=== PATIENT | female | born 1995 | race American Indian/Alaskan Native ===

== ENCOUNTER 2016-12-19 04:39 | Emergency (ER) | payer OTHER ==
[2016-12-19 04:42] VITALS: BMI 22.1
[2016-12-19 04:58] VITALS: RESP 18
--- NOTE | 2016-12-19 05:08 | ED PDOC ---
Arrival/HPI <Guilherme Tim - Last Filed: 12/19/16 06:04> - General Historian: Patient <Varsha Kumar - Last Filed: 12/19/16 06:19> - General Chief Complaint: Dizziness/Lightheaded Time Seen by Provider: 12/19/16 04:47 - History of Present Illness Narrative History of Present Illness (Text): 12/19/16 05:05 Patient is a 21 y/o with no significant pmh, h/o multiple ED visits presenting with dizziness, and headache since yesterday. Patient states the symptom started 2 pm yesterday, she took Tylenol with some relief. Patient states she works night at [employer], and while at work, she continued to experience dizziness and headache, someone checked her BP it was 120/90s. Patient admits to feeling anxious, and is under a lot of stress from work. Patient admits to chest palpitations, and nausea. Denies vomiting or diarrhea. Patient denies cp or sob, denies falling or LOC. 12/19/16 05:08 (Varsha Kumar) Past Medical History - Provider Review Nursing Documentation Reviewed: Yes - Travel History Have you recently traveled outside [place] w/in the past 3 mons?: No - Past History Past History: No Previous - Infectious Disease Hx of Infectious Diseases: None - Tetanus Immunization Tetanus Immunization: Unknown - Reproductive Menopause: No - Past Medical History Past Medical History: No Previous - Cardiac Hx Cardiac Disorders: No - Pulmonary Hx Respiratory Disorders: No Hx Asthma: No - Psychiatric Hx Substance Use: No - Past Surgical History Past Surgical History: No Previous - Anesthesia Hx Anesthesia: No Hx Anesthesia Reactions: No Hx Malignant Hyperthermia: No <Varsha Kumar - Last Filed: 12/19/16 06:19> Family/Social History - Physician Review Nursing Documentation Reviewed: Yes Family/Social History: No Known Family HX Smoking Status: Never Smoked Hx Alcohol Use: No Hx Substance Use: No <Varsha Kumar - Last Filed: 12/19/16 06:19> Allergies/Home Meds <Guilherme Tim - Last Filed: 12/19/16 06:04> <Varsha Kumar - Last Filed: 12/19/16 06:19> Allergies/Adverse Reactions: Allergies No Known Allergies Allergy (Verified 06/28/16 11:06) Home Medications: Home Meds Medication Instructions Recorded Confirmed No Known Home Med 07/06/16 07/06/16 Review of Systems - Review of Systems Constitutional: Normal Eyes: Normal ENT: Normal Respiratory: Normal Cardiovascular: Palpitations. absent: Chest Pain, Edema, Orthopnea, Syncope Gastrointestinal: Nausea. absent: Stool Changes, Constipation, Diarrhea, Vomiting Genitourinary Female: Normal Musculoskeletal: Normal Skin: Normal Neurological: Headache, Dizziness. absent: Focal Weakness, Speech Changes, Seizure Endocrine: Normal Hemo/Lymphatic: Normal Psychiatric: Normal <Varsha Kumar - Last Filed: 12/19/16 06:19> Physical Exam Vital Signs Reviewed: Yes Temperature: Afebrile Blood Pressure: Normal Pulse: Regular Respiratory Rate: Normal Appearance: Positive for: Well-Appearing, Comfortable. No: Non-Toxic Pain Distress: None Mental Status: Positive for: Alert and Oriented X 3 - Systems Exam Head: Present: Atraumatic, Normocephalic Pupils: Present: PERRL Extroacular Muscles: Present: EOMI Conjunctiva: Present: Normal Mouth: Present: Dry Neck: Present: Normal Range of Motion Respiratory/Chest: Present: Clear to Auscultation, Good Air Exchange. No: Respiratory Distress, Accessory Muscle Use, Wheezes, Rales, Rhonchi, Tachypneic Cardiovascular: Present: Regular Rate and Rhythm, Normal S1, S2. No: Murmurs Abdomen: Present: Normal Bowel Sounds. No: Tenderness, Distention Back: Present: Normal Inspection Upper Extremity: Present: Normal Inspection. No: Cyanosis, Edema Lower Extremity: Present: Normal Inspection. No: Edema Neurological: Present: GCS=15, Speech Normal Skin: Present: Warm, Dry, Normal Color. No: Rashes Psychiatric: Present: Alert, Oriented x 3, Anxious <Varsha Kumar - Last Filed: 12/19/16 06:19> Vital Signs Pulse Resp BP Pulse Ox 12/19/16 04:42 79 18 131/65 97 Medical Decision Making <Guilherme Tim - Last Filed: 12/19/16 06:04> - EKG Interpretation Interpreted by ED Physician: Yes Type: 12 lead EKG <Varsha Kumar - Last Filed: 12/19/16 06:19> ED Course and Treatment: Impression: Pt seen and evaluated with medical liaison. Pt, with no significant past medical history, presented for dizziness and headache since 14:00 yesterday. Pt notes she is stressed due to her workload. Pt also reports palpitations. Aware and agree with HPI, clinical findings, plan, and management. Plan: -- EKG -- CT Head w/o contrast -- Tylenol - Reassess and disposition (Guilherme Tim) - RAD Interpretation Radiology Orders: 12/19/16 05:02 HEAD W/O CONTRAST [CT] Stat - EKG Interpretation EKG Interpretation (Text): 12/19/16 06:07 NSR@ 67 BPM. with sinus arrhythmias. No acute ST/T wave changes. 12/19/16 06:08 (Varsha Kumar) - Medication Orders Current Medication Orders: Discontinued Medications Acetaminophen (Tylenol 325mg Tab) 650 mg PO STAT STA Stop: 12/19/16 05:09 Last Admin: 12/19/16 05:19 Dose: 650 mg - PA / SOFTWARE DEVELOPMENT INTERN / Resident Statement JAIR has reviewed & agrees with the documentation as recorded. JAIR has examined the patient and agrees with the treatment plan. <Guilherme Tim - Last Filed: 12/19/16 06:04> Disposition/Present on Arrival <Guilherme Tim - Last Filed: 12/19/16 06:04> - Present on Arrival Any Indicators Present on Arrival: No History of DVT/PE: No History of Uncontrolled Diabetes: No Urinary Catheter: No History of Decub. Ulcer: No History Surgical Site Infection Following: None - Disposition Have Diagnosis and Disposition been Completed?: Yes Disposition Time: 06:09 Patient Plan: Discharge <Varsha Kumar - Last Filed: 12/19/16 06:19> - Disposition Diagnosis: Headache, Dizziness, Anxiety Disposition: HOME/ ROUTINE Condition: STABLE Discharge Instructions (ExitCare): Anxiety (ED) Additional Instructions: Please follow up with your primary care doctor. Go to the nearest emergency room if you experienced the worst headache of your life, chest pain, fever or chills. Referrals: [facility] [place] - Follow up with primary Nora Blanchard MD [Medical Doctor] - Follow up with primary
[2016-12-19 06:21] VITALS: BP 126/62; PULSE 75; TEMP 98.4; O2SAT 99
--- NOTE | 2016-12-19 09:21 | CT ---
PROCEDURE: CT HEAD WITHOUT CONTRAST. HISTORY: r/o cva COMPARISON: None available. TECHNIQUE: Axial computed tomography images were obtained through the head/brain without intravenous contrast. Radiation dose: Total exam DLP = 629 mGy-cm. This CT exam was performed using one or more of the following dose reduction techniques: Automated exposure control, adjustment of the mA and/or kV according to patient size, and/or use of iterative reconstruction technique. FINDINGS: HEMORRHAGE: No intracranial hemorrhage. BRAIN: No mass effect or edema. No atrophy or chronic microvascular ischemic changes. VENTRICLES: Unremarkable. No hydrocephalus. CALVARIUM: Unremarkable. PARANASAL SINUSES: Unremarkable as visualized. No significant inflammatory changes. MASTOID AIR CELLS: Unremarkable as visualized. No inflammatory changes. OTHER FINDINGS: The report concurs with the preliminary [facility] report IMPRESSION: Normal CT of the Head.
--- NOTE | 2016-12-19 15:31 | CARD ---
APPROVED REPORT EKG Measurement Heart [id number] <Conclusion> Normal sinus rhythm with sinus arrhythmia Normal ECG
== END 2016-12-19 06:20 | disposition home or self-care (01) ==
LOC: ED 04:39
DX: R51 Headache (principal); R42 Dizziness and giddiness; F41.9 Anxiety disorder, unspecified

== ENCOUNTER 2017-01-07 14:25 | Emergency (ER) | payer SELFPAY ==
[2017-01-07 14:49] VITALS: BMI 23.8
[2017-01-07 14:53] VITALS: TEMP 98.8; O2SAT 96
[2017-01-07] MEDS ORDERED: Sodium Chloride 0.9% 1,000 ML IV STA (15:42)
[2017-01-07 16:02] VITALS: RESP 18
[2017-01-07 16:11] LABS: BASO # 0.01 K/mm3 (0.0-2.0); BASO % 0.1 % (0.0-3.0); EOS % 0.1 % (1.5-5.0); GRAN # 13.69 (1.4-6.5); GRAN % 93.5 % (50.0-68.0); HEMOGLOBIN 14.3 gm/dL (12.0-16.0); LYMPH # 0.4 (1.2-3.4); LYMPH % 2.7 % (22.0-35.0); MEAN CELL VOLUME 80.8 fL (80.0-105.0); MEAN CORPUSCULAR HEMOGLOBIN 27.4 pg (25.0-35.0); MEAN CORPUSCULAR HGB CONC 33.9 g/dl (31.0-37.0); MEAN PLATELET VOLUME 10.7 fl (7.0-11.0); MONO # 0.5 (0.1-0.6); MONO % 3.6 % (1.0-6.0); PLATELET COUNT 235 10^3/uL (120.0-450.0); RBC 5.22 10^6/uL (3.5-6.1); RED CELL DISTRIBUTION WIDTH 13.7 % (11.5-14.5); WHITE BLOOD COUNT 14.6 10^3/ul (4.5-11.0)
[2017-01-07 16:14] LABS: ALB/GLOB RATIO 1.1 (1.1-1.8); ALBUMIN 4.6 g/dL (3.0-4.8); ALT/SGPT 27 U/L (7-56); AST/SGOT 31 U/L (15-39); BLOOD UREA NITROGEN 21 mg/dL (7-21); CALCIUM 9.8 mg/dL (8.4-10.5); GFR AFRICAN-AMERICAN > 60; GFR NON-AFRICAN AMERICAN > 60; LIPASE 99 U/L (23-300)
[2017-01-07 16:16] LABS: URINE BILIRUBIN NEGATIVE (NEGATIVE); URINE BLOOD NEGATIVE (NEGATIVE); URINE GLUCOSE (UA) NEGATIVE (NEGATIVE); URINE LEUKOCYTE ESTERASE SMALL Leu/uL (NEGATIVE); URINE NITRATE NEGATIVE (NEGATIVE); URINE PROTEIN NEGATIVE mg/dL (<30 mg/dL); URINE UROBILINOGEN 0.2 E.U./dL (<1 E.U./dL)
[2017-01-07 16:18] LABS: URINE APPEARANCE SL CLOUDY (CLEAR); URINE COLOR YELLOW (YELLOW)
[2017-01-07 16:38] LABS: URINE BACTERIA MANY (NEG); URINE RBC NEGATIVE /hpf (0-2); URINE WBC 0 - 2 /hpf (0-6)
[2017-01-07 17:28] VITALS: BP 131/79; PULSE 89
--- NOTE | 2017-01-07 17:30 | ED PDOC ---
Arrival/HPI - General Historian: Patient - General Chief Complaint: GI Problem Time Seen by Provider: 01/07/17 14:32 - History of Present Illness Narrative History of Present Illness (Text): 01/07/17 18:32 21-year-old female presents to the emergency room complaining of multiple episodes of vomiting associated with lower abdominal pain and diarrhea since this morning. patient states that since this morning at 7:30 she has been feeling nauseous and has had multiple episodes of nonbloody, nonbilious vomiting associated with mild crampy intermittent lower abdominal pain, as well as having 2 episodes of nonbloody diarrhea today. Otherwise: (-) recent travel, (-) sick contacts, (-) recent antibiotic use, (-) take out food, (-) fever, (-) melena, (-) hematochezia, (-) urinary symptoms. Has no history of prior abdominal surgery. PMD [place] (Eveline Palma PA-C) Past Medical History - Provider Review Nursing Documentation Reviewed: Yes - Past History Past History: No Previous - Infectious Disease Hx of Infectious Diseases: None - Tetanus Immunization Tetanus Immunization: Unknown - Past Medical History Past Medical History: No Previous - Cardiac Hx Cardiac Disorders: No - Pulmonary Hx Respiratory Disorders: No Hx Asthma: No - Psychiatric Hx Substance Use: No - Past Surgical History Past Surgical History: No Previous - Anesthesia Hx Anesthesia: No Hx Anesthesia Reactions: No Hx Malignant Hyperthermia: No Family/Social History - Physician Review Nursing Documentation Reviewed: Yes Family/Social History: No Known Family HX Smoking Status: Never Smoked Hx Alcohol Use: No Hx Substance Use: No Allergies/Home Meds Allergies/Adverse Reactions: Allergies No Known Allergies Allergy (Verified 01/07/17 14:49) Review of Systems - Review of Systems Constitutional: Normal. absent: Fatigue, Weight Change, Fevers Respiratory: Normal. absent: SOB, Cough, Sputum Cardiovascular: Normal. absent: Chest Pain, Palpitations, Edema Gastrointestinal: Normal, Abdominal Pain, Diarrhea, Vomiting. absent: Stool Changes, Appetite Changes Musculoskeletal: Normal. absent: Arthralgias, Back Pain, Neck Pain Skin: Normal. absent: Rash, Pruritis, Skin Lesions Physical Exam - Physical Exam Narrative Physical Exam (Text): 01/07/17 18:31 GENERAL APPEARANCE: Patient is awake, alert, oriented x 3, in no acute distress. SKIN: Warm, dry; (-) cyanosis. EYES: (-) conjunctival pallor, (-) scleral icterus. ENMT: Mucous membranes dry. NECK: (-) tenderness, (-) stiffness, (-) lymphadenopathy. CHEST AND RESPIRATORY: (-) rales, (-) rhonchi, (-) wheezes; breath sounds equal bilaterally. HEART AND CARDIOVASCULAR: (-) irregularity; (-) murmur, (-) gallop. ABDOMEN AND GI: (-) distention. Bowel sounds active; (+) mild diffuse abdominal tenderness, greatest in the LUQ (-) guarding, (-) rebound, (-) palpable masses, (-) CVA tenderness. EXTREMITIES: (-) deformity, (-) edema, (+) distal pulses. NEURO AND PSYCH: Mental status as above; (-) focal findings. (Louie VALENTINE, Eveline Matute) Vital Signs Temp Pulse Resp BP Pulse Ox 01/07/17 17:15 89 18 131/79 96 01/07/17 16:01 98 H 18 133/89 96 01/07/17 14:50 98.8 F 120 H 19 135/93 H 96 Medical Decision Making ED Course and Treatment: 01/07/17 17:37 I was available for consultation during PA evaluation. The chart was reviewed by me, and I agree with disposition. The documented history was done by the physician bag turner. The documented physical exam was done by the physician bag turner. The documented procedures were done by the physician bag turner. (Bubba Staley) 21-year-old female presents to the emergency room complaining of multiple episodes of vomiting associated with lower abdominal pain and diarrhea since this morning. Based on history and exam likely gastroenteritis considered dyspepsia, and colitis. Plan: -- Labs -- IV fluids -- Urinalysis -- Pepcid / Zofran / Toradol -- Reassess and disposition On reevaluation, the patient is sleeping comfortably on the bed in no acute distress, however she is easily arousable. Patient reports improvement of abdominal pain, denies any nausea, had no further episodes of vomiting or diarrhea in the emergency room. On exam, abdomen remains soft with no tenderness , no guarding, no rebound. Lab results reviewed, WBC 14.6, CMP is wnl, uhcg (-), UA +ketones, +UTI. Urine cx sent. Lab results discussed with the patient in great detail. Prescription provided to the patient. Advised to follow up with her PMD in 2 days for reevaluation without fail. Patient advised to return to the emergency room at any time for any worsening symptoms, intractable vomiting or fever. Patient states she fully agrees with and understands discharge instructions. States that she agrees with the plan and disposition. Verbalized and repeated discharge instructions and plan. I have given the patient opportunity to ask any additional questions. (Louie VALENTINE,Eveline Matute) - Lab Interpretations Lab Results: 01/07/17 15:50 01/07/17 15:50 Lab Results 01/07/17 16:07: Urine Color Yellow, Urine Appearance Sl cloudy, Urine pH 6.0, Ur Specific [place] 1.025, Urine Protein Negative, Urine Glucose (UA) Negative, Urine Ketones 40 H, Urine Blood Negative, Urine Nitrate Negative, Urine Bilirubin Negative, Urine Urobilinogen 0.2, Ur Leukocyte Esterase Small H, Urine RBC Negative, Urine WBC 0 - 2, Ur Epithelial Cells 10 - 12, Urine Bacteria Many 01/07/17 15:50: Sodium 138, Potassium 4.1, Chloride 103, Carbon Dioxide 24, Anion Gap 15, BUN 21, Creatinine 0.9, Est GFR ( Amer) > 60, Est GFR (Non- Af Amer) > 60, Random Glucose 88, Calcium 9.8, Total Bilirubin 0.8, AST 31, ALT 27, Alkaline Phosphatase 64, Total Protein 8.7 H, Albumin 4.6, Globulin 4.1, Albumin/Globulin Ratio 1.1, Lipase 99 01/07/17 15:50: WBC 14.6 H D, RBC 5.22, Hgb 14.3, Hct 42.2, MCV 80.8, MCH 27.4, MCHC 33.9, RDW 13.7, Plt Count 235, MPV 10.7, Gran % 93.5 H, Lymph % (Auto) 2.7 L, [place] % (Auto) 3.6, Eos % (Auto) 0.1 L, Baso % (Auto) 0.1, Gran # 13.69 H, Lymph # 0.4 L, [place] # 0.5, Eos # 0.0, Baso # 0.01 - Medication Orders Current Medication Orders: Discontinued Medications Famotidine (Pepcid) 20 mg IVP STAT STA Stop: 01/07/17 15:43 Last Admin: 01/07/17 15:56 Dose: 20 mg Sodium Chloride (Sodium Chloride 0.9%) 1,000 mls @ 1,000 mls/hr IV .Q1H STA Stop: 01/07/17 16:41 Last Admin: 01/07/17 15:56 Dose: 1,000 mls/hr Ketorolac Tromethamine (Toradol) 30 mg IVP STAT STA Stop: 01/07/17 15:43 Last Admin: 01/07/17 15:56 Dose: 30 mg Re-Assess: YULIYA Pain Assessment Document 01/07/17 16:56 GMD (Rec: 01/07/17 17:34 GMD [id number]) Pain Reassessment Is this a pain reassessment? Yes Presence of Pain Presence of Pain No Ondansetron HCl (Zofran Inj) 4 mg IVP STAT STA Stop: 01/07/17 15:43 Last Admin: 01/07/17 15:56 Dose: 4 mg - PA / ARMORING MACHINE OPERATOR / Resident Statement MD/DO has reviewed & agrees with the documentation as recorded. Disposition/Present on Arrival - Present on Arrival Any Indicators Present on Arrival: No History of DVT/PE: No History of Uncontrolled Diabetes: No Urinary Catheter: No History of Decub. Ulcer: No History Surgical Site Infection Following: None - Disposition Have Diagnosis and Disposition been Completed?: Yes Disposition Time: 17:10 Patient Plan: Discharge - Disposition Diagnosis: Gastroenteritis, UTI (urinary tract infection) Disposition: HOME/ ROUTINE Condition: IMPROVED Discharge Instructions (ExitCare): Urinary Tract Infection in Women (ED), Gastroenteritis (ED) Print Language: SLOV[place] Additional Instructions: Thank you for letting us take care of you today. You were treated for gastroenteritis, UTI. The emergency medical care you received today was directed at your acute symptoms. If you were prescribed any medication, please fill it and take as directed. It may take several days for your symptoms to resolve. Return to the Emergency Department if your symptoms worsen, do not improve, or if you have any other problems. Please contact your doctor in 2 days for re-evaluation and follow up. Bring any paperwork you were given at discharge with you along with any medications you are taking to your follow up visit. Our treatment cannot replace ongoing medical care by a primary care provider (PCP) outside of the emergency department. Thank you for allowing the [facility] team to be part of your care today. Prescriptions: Famotidine [Pepcid] 40 mg PO DAILY #20 tablet Nitrofurantoin Macrocrystals [Macrobid] 100 mg PO BID #20 cap Ondansetron ODT [Zofran ODT] 4 mg PO DAILY PRN #20 odt PRN Reason: Nausea/Vomiting Referrals: [facility] Maximilian Reotto, [Primary Care Provider] - Follow up with primary Forms: WORK NOTE
== END 2017-01-07 17:38 | disposition home or self-care (01) ==
LOC: ED 14:25
DX: K52.9 Noninfective gastroenteritis and colitis, unspecified (principal); N39.0 Urinary tract infection, site not specified
CPT/HCPCS: 80053; 81001; 83690; 85025; 87086; 96361; 96374; 96375; 99285; J1885; J2405; J7040

== ENCOUNTER 2017-03-04 20:07 | Emergency (ER) | payer SELFPAY ==
[2017-03-04 20:11] VITALS: BMI 22.1
[2017-03-04 20:18] VITALS: BP 140/67; PULSE 74; RESP 16; TEMP 98.1; O2SAT 97
--- NOTE | 2017-03-04 20:26 | ED PDOC ---
Arrival/HPI <Guilherme Tim - Last Filed: 03/04/17 21:30> - History of Present Illness Time/Duration: Other (2 days) Symptom Onset: Gradual Symptom Course: Worsening Quality: Aching, Tightness Severity Level: Severe Context: Standing <Cesar Hurt - Last Filed: 03/04/17 22:30> - General Chief Complaint: Lower Extremity Problem/Injury Time Seen by Provider: 03/04/17 20:10 - History of Present Illness Narrative History of Present Illness (Text): 03/04/17 20:20 21yo F with no significant PMHx here for evaluation of right lower extremity. Pain started 2 days ago, located in the back of right knee and radiates to the right buttock. Pain described as deep, sharp, aching, 9/10 on pain scale. She states that she has had similar complaints in the past, but none have been this bad. She has not taken anything for the pain at home. She states that walking makes the pain worse. She states that she is on her feet, standing for about 10 hours for work, which she believes that has made her pain worse. Denies any trauma. Denies any back pain. No bowel or urine changes. No Abd pain. No N/V/D. No CP/SOB. No Boils or skin changes. No further complaints. PMHx: Denies PSHx: Denies Social Hx: Denies tob, Denies ETOH, Denies illicit drugs NKDA (Cesar Hurt) Past Medical History - Provider Review Nursing Documentation Reviewed: Yes - Past History Past History: No Previous - Infectious Disease Hx of Infectious Diseases: None - Tetanus Immunization Tetanus Immunization: Unknown - Past Medical History Past Medical History: No Previous - Cardiac Hx Cardiac Disorders: No - Pulmonary Hx Respiratory Disorders: No Hx Asthma: No - Psychiatric Hx Substance Use: No - Past Surgical History Past Surgical History: No Previous - Anesthesia Hx Anesthesia: No Hx Anesthesia Reactions: No Hx Malignant Hyperthermia: No <Cesar Hurt - Last Filed: 03/04/17 22:30> Family/Social History - Physician Review Nursing Documentation Reviewed: Yes Family/Social History: No Known Family HX Smoking Status: Never Smoked Hx Alcohol Use: No Hx Substance Use: No <Cesar Hurt - Last Filed: 03/04/17 22:30> Allergies/Home Meds <Guilherme Tim - Last Filed: 03/04/17 21:30> <Cesar Hurt - Last Filed: 03/04/17 22:30> Allergies/Adverse Reactions: Allergies No Known Allergies Allergy (Verified 01/07/17 14:49) Review of Systems - Physician Review All systems were reviewed & negative as marked: Yes - Review of Systems Constitutional: Normal Eyes: Normal ENT: Normal Respiratory: Normal Cardiovascular: Normal. absent: Chest Pain Gastrointestinal: Normal. absent: Abdominal Pain Genitourinary Female: Normal. absent: Dysuria Musculoskeletal: Other (Right leg pain). absent: Back Pain Skin: Normal Neurological: Normal Endocrine: absent: Diaphoresis Hemo/Lymphatic: absent: Adenopathy Psychiatric: Normal <Cesar Hurt - Last Filed: 03/04/17 22:30> Physical Exam Vital Signs Reviewed: Yes Temperature: Afebrile Blood Pressure: Normal Pulse: Regular Respiratory Rate: Normal Appearance: Positive for: Well-Appearing, Non-Toxic, Comfortable Pain Distress: Moderate Mental Status: Positive for: Alert and Oriented X 3 - Systems Exam Head: Present: Atraumatic, Normocephalic Extroacular Muscles: Present: EOMI Conjunctiva: Present: Normal Mouth: Present: Moist Mucous Membranes Respiratory/Chest: Present: Clear to Auscultation, Good Air Exchange. No: Respiratory Distress Cardiovascular: Present: Regular Rate and Rhythm, Normal S1, S2, Peripheal Pulses Present. No: Murmurs, Tachycardic Abdomen: No: Tenderness, Distention, Peritoneal Signs, Rebound, Guarding Back: Present: Normal Inspection. No: CVA Tenderness, Midline Tenderness, Paraspinal Tenderness, Pain with Leg Raise Upper Extremity: Present: Normal Inspection, Normal ROM, NORMAL PULSES. No: Edema Lower Extremity: Present: Normal Inspection, NORMAL PULSES, Normal ROM, Neurovascularly Intact. No: Edema, CALF TENDERNESS, Cyanosis, Valery's Sign, Tenderness, Swelling, Erythema, Deformity, Temperature Abnormalties Neurological: Present: GCS=15, CN II-XII Intact, Speech Normal, Gait Normal Skin: Present: Warm, Dry, Normal Color. No: Rashes, Abscess Psychiatric: Present: Alert, Oriented x 3 <Cesar Hurt - Last Filed: 03/04/17 22:30> Vital Signs Temp Pulse Resp BP Pulse Ox 03/04/17 20:08 98.1 F 74 16 140/67 97 Medical Decision Making <Guilherme Tim - Last Filed: 03/04/17 21:30> <Cesar Hurt - Last Filed: 03/04/17 22:30> ED Course and Treatment: 03/04/17 21:31 In agreement with resident note, which includes further HPI details. Patient was seen and evaluated with resident, came up with plan and treatment together. (Guilherme Tim) 03/04/17 20:33 21yo F here with right leg pain - Duplex Right Lower Extremity - Urine Preg negative - Toradol 30mg IM - reassess and dispo 03/04/17 22:19 Doppler RLE - Negative DVT Study (Prelim) Discussed findings with patient. All questions and concerns addressed. Prescribed Naproxyn. Patient to follow up with her PMD. Patient understands and agrees with plan. (Cesar Hurt) - RAD Interpretation Radiology Orders: 03/04/17 20:30 DUPLEX LOWER EXTRM VEIN RIGHT [US] Stat - Medication Orders Current Medication Orders: Discontinued Medications Ketorolac Tromethamine (Toradol) 30 mg IM STAT STA Stop: 03/04/17 20:50 Last Admin: 03/04/17 21:04 Dose: 30 mg - Scribe Statement The provider has reviewed the documentation as recorded by the Scribe <Guilherme Tim - Last Filed: 03/04/17 21:30> - PA / SECONDARY SCHO[employer] SPECIAL ED TEACHER / Resident Statement / has reviewed & agrees with the documentation as recorded. MD/ has examined the patient and agrees with the treatment plan. <Cesar Hurt - Last Filed: 03/04/17 22:30> - Scribe Statement 03/04/2017 Lindsay Boone Provider Scribe Attestation: All medical record entries made by the Scribe were at my direction and personally dictated by me. I have reviewed the chart and agree that the record accurately reflects my personal performance of the history, physical exam, medical decision making, and the department course for this patient. I have also personally directed, reviewed, and agree with the discharge instructions and disposition. (Guilherme Tim) Disposition/Present on Arrival <Guilherme Tim - Last Filed: 03/04/17 21:30> - Present on Arrival Any Indicators Present on Arrival: No History of DVT/PE: No History of Uncontrolled Diabetes: No Urinary Catheter: No History Surgical Site Infection Following: None - Disposition Have Diagnosis and Disposition been Completed?: Yes Disposition Time: 22:22 Patient Plan: Discharge <Cesar Hurt - Last Filed: 03/04/17 22:30> - Disposition Diagnosis: Leg pain, right Disposition: HOME/ ROUTINE Patient Problems: Current Active Problems Problem Status Onset Leg pain, right Acute Condition: GOOD Discharge Instructions (ExitCare): Leg Pain (ED) Additional Instructions: 1. Follow up with your Primary Care Physician within 3 days. 2. Take Naprosyn as prescribed as needed for pain 3. Rest, Ice and Elevate affected lower extremity 4. Return to the ER with any concerning symptoms Prescriptions: Naproxen 500 mg PO BID #14 tab Referrals: Chasidy Romero, [Primary Care Provider] - Follow up with primary Forms: WORK NOTE
--- NOTE | 2017-03-05 10:53 | US ---
PROCEDURE: Right lower extremity venous US HISTORY: Leg pain and swelling. Evaluate for DVT. PHYSICIAN(S): Luis M Talbert M.D. TECHNIQUE: Duplex sonography and color-flow Doppler with graded compression were used to evaluate the deep venous system of the right lower extremity. FINDINGS: The visualized deep venous system of the right lower extremity is sonographically normal and compressible. Normal waveforms and augmentation are seen. There is no sonographic evidence for deep venous thrombosis in the visualized segments of the right lower extremity. IMPRESSION: 1. No sonographic evidence for deep venous thrombosis in the visualized segments of the right lower extremity.
== END 2017-03-04 22:50 | disposition home or self-care (01) ==
LOC: ED 20:07
DX: M79.604 Pain in right leg (principal)
CPT/HCPCS: 93971; 96372; 99283; J1885

== ENCOUNTER 2017-10-22 19:47 | Emergency (ER) | payer BC ==
[2017-10-22 19:48] VITALS: BMI 22.1
[2017-10-22 20:36] VITALS: RESP 18; TEMP 99.1
[2017-10-22] MEDS ORDERED: Oxycodone/Acetaminophen 5/325 mg Tab PO STA (21:36)
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
[2017-10-23 00:14] VITALS: BP 125/82; PULSE 75; O2SAT 100
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
== END 2017-10-22 22:30 | disposition home or self-care (01) ==
LOC: ED 19:47
DX: S16.1XXA Strain of muscle, fascia and tendon at neck level, initial encounter (principal); V43.62XA Car passenger injured in collision with other type car in traffic accident, initial encounter; M54.5 Low back pain

== ENCOUNTER 2018-09-25 21:06 | Emergency (ER) | payer BC, OTHER ==
[2018-09-25 21:06] VITALS: BMI 22.1
[2018-09-25 21:28] VITALS: RESP 18
--- NOTE | 2018-09-25 22:16 | ED PDOC ---
Arrival/HPI - General Chief Complaint: GI Problem Time Seen by Provider: 09/25/18 21:40 Historian: Patient - History of Present Illness Narrative History of Present Illness (Text): 22 y/o female with no significant PMH presents to the ED c/o rectal bleeding x 1 week. Pt states that when she wipes after BM, she sees blood on the tissue. Pt has not seen blood in the toilet bowl. Pt has never experienced this before. Last BM yesterday, stool brown and soft. LMP 09/01/18. Denies fever, chills, abdominal pain, fever, chills, constipation, diarrhea, vaginal bleeding/discharge/odor, rectal pain, back pain, chest pain, SOB, palpitations, melena, urinary symptoms, or any other associated symptoms. Past Medical History - Provider Review Nursing Documentation Reviewed: Yes - Past History Past History: No Previous - Infectious Disease Hx of Infectious Diseases: None - Tetanus Immunization Tetanus Immunization: Unknown - Past Medical History Past Medical History: No Previous - Cardiac Hx Cardiac Disorders: No - Pulmonary Hx Respiratory Disorders: No Hx Asthma: No - Psychiatric Hx Substance Use: No - Past Surgical History Past Surgical History: No Previous - Anesthesia Hx Anesthesia: No Hx Anesthesia Reactions: No Hx Malignant Hyperthermia: No Family/Social History - Physician Review Nursing Documentation Reviewed: Yes Family/Social History: No Known Family HX Smoking Status: Never Smoked Hx Alcohol Use: Yes Frequency of alcohol use: Socially Hx Substance Use: No Hx Substance Use Treatment: No Allergies/Home Meds Allergies/Adverse Reactions: Allergies No Known Allergies Allergy (Verified 01/07/17 14:49) Review of Systems - Review of Systems Constitutional: Normal. absent: Fevers Eyes: Normal. absent: Vision Changes ENT: Normal. absent: Sore Throat Respiratory: Normal. absent: SOB, Cough Cardiovascular: Normal. absent: Chest Pain, Palpitations, Syncope Gastrointestinal: Hematochezia. absent: Abdominal Pain, Constipation, Diarrhea, Nausea, Vomiting, Appetite Changes, Hematemesis Genitourinary Female: Frequency. absent: Dysuria, Vaginal Bleeding, Vaginal Discharge Musculoskeletal: Normal. absent: Arthralgias, Back Pain, Neck Pain Skin: Normal. absent: Rash Neurological: Normal. absent: Headache, Dizziness Endocrine: Normal Hemo/Lymphatic: Normal Psychiatric: Normal Physical Exam Vital Signs Reviewed: Yes Vital Signs Temp Pulse Resp BP Pulse Ox 09/25/18 21:27 98.5 F 80 18 136/72 98 Temperature: Afebrile Blood Pressure: Normal Pulse: Regular Respiratory Rate: Normal Appearance: Positive for: Well-Appearing, Non-Toxic, Comfortable Pain Distress: None Mental Status: Positive for: Alert and Oriented X 3 - Systems Exam Head: Present: Atraumatic, Normocephalic Pupils: Present: PERRL Extroacular Muscles: Present: EOMI Conjunctiva: Present: Normal Mouth: Present: Moist Mucous Membranes Neck: Present: Normal Range of Motion. No: MIDLINE TENDERNESS, Paraspinal Tenderness Respiratory/Chest: Present: Clear to Auscultation, Good Air Exchange. No: Respiratory Distress, Accessory Muscle Use Cardiovascular: Present: Regular Rate and Rhythm, Normal S1, S2, Peripheal Pulses Present Abdomen: Present: Normal Bowel Sounds. No: Tenderness, Distention, Peritoneal Signs, Rebound, Guarding Rectal: Present: Hemorrhoids (small nonthrombosed extrenal hemorrhoid at 6 o'clock). No: Occult Blood, Rectal Tenderness Back: Present: Normal Inspection. No: CVA Tenderness, Paraspinal Tenderness Upper Extremity: Present: Normal Inspection, NORMAL PULSES, Neurovascularly Intact, Capillary Refill < 2s. No: Cyanosis, Edema, Temperature Abnormalties Lower Extremity: Present: Normal Inspection, NORMAL PULSES, Normal ROM, Neurovascularly Intact, Capillary Refill < 2 s. No: Edema, Temperature Abnormalties Neurological: Present: GCS=15, CN II-XII Intact, Speech Normal, Motor Func Grossly Intact, Normal Sensory Function, Gait Normal Skin: Present: Warm, Dry, Normal Color. No: Rashes Psychiatric: Present: Alert, Oriented x 3, Normal Insight, Normal Concentration, Normal Affect, Normal Mood Medical Decision Making ED Course and Treatment: Initial Plan: * CBC, CMP * Coags * UA, culture * Hemeoccult Bloodwork reviewed, unremarkable; no anemia UA shows findings suspicious for UTI, pt admits to urinary frequency, will treat with keflex first dose here Hemeoccult negative Pt continues to have no pain. Abdomen soft, nontender. Advised PMD and GI followup. Diagnostic testing results and plan of care discussed with patient. Strict instructions given regarding prescription use, importance of followup, and signs/symptoms to return to ER including abdominal pain, nausea, vomiting, fever, chills, or any other new/worsening symptoms. Pt verbalized understanding of discussion. Patient is A&Ox3, ambulating with steady gait, with vital signs stable for discharge. - Lab Interpretations Lab Results: 09/25/18 22:12 09/25/18 22:12 Lab Results 09/25/18 22:12: Urine Color Light yellow, Urine Appearance Clear, Urine pH 6.0, Ur Specific [place] >= 1.030, Urine Protein Negative, Urine Glucose (UA) Negative, Urine Ketones Negative, Urine Blood Small H, Urine Nitrate Negative, Urine Bilirubin Negative, Urine Urobilinogen 0.2, Ur Leukocyte Esterase Trace H, Urine RBC 0 - 2, Urine WBC 0 - 2, Ur Epithelial Cells 1 - 3 09/25/18 22:12: Sodium 137, Potassium 3.9, Chloride 104, Carbon Dioxide 25, Anion Gap 12, BUN 19, Creatinine 0.8, Est GFR ( Amer) > 60, Est GFR (Non- Af Amer) > 60, Random Glucose 82, Calcium 9.7, Total Bilirubin 0.3, AST 27, ALT 10, Alkaline Phosphatase 78, Total Protein 8.0, Albumin 4.3, Globulin 3.7, Albumin/Globulin Ratio 1.1 09/25/18 22:12: PT 12.3, INR 1.11, APTT 34.5 09/25/18 22:12: WBC 6.9, RBC 4.57, Hgb 12.2, Hct 36.6, MCV 80.1, MCH 26.7, MCHC 33.3, RDW 14.3, Plt Count 249, MPV 11.3 H, Neut % (Auto) 62.0, Lymph % (Auto) 31.0, [place] % (Auto) 5.1, Eos % (Auto) 1.5, Baso % (Auto) 0.4, Lymph # (Auto) 2.1, [place] # (Auto) 0.4, Eos # (Auto) 0.1, Baso # (Auto) 0.03, Absolute Neuts (auto) 4.25 Disposition/Present on Arrival - Present on Arrival Any Indicators Present on Arrival: No History of DVT/PE: No History of Uncontrolled Diabetes: No Urinary Catheter: No History of Decub. Ulcer: No History Surgical Site Infection Following: None - Disposition Have Diagnosis and Disposition been Completed?: Yes Diagnosis: UTI (urinary tract infection), Rectal bleeding, Hemorrhoids Disposition: HOME/ ROUTINE Disposition Time: 22:40 Condition: GOOD Discharge Instructions (ExitCare): Urinary Tract Infections in Adults, Bloody Stools, Adult (DC) Additional Instructions: Increase fluids and fiber Keflex every 12 hours for 7 days Followup with GI doctor within 2 days Followup with clinic within 2 days Return to ER with any new/worsening symptoms Prescriptions: Cephalexin [Keflex] 500 mg PO BID 7 Days #14 capsule Referrals: [facility] [place]] - Follow up with primary Andi Bautista MD [Staff Provider] - Follow up with primary Nadia Dutta MD [Medical Doctor] - Follow up with primary Forms: [employer] (Colombian), WORK NOTE
[2018-09-25 22:18] LABS: BASO # 0.03 K/mm3 (0.0-2.0); BASO % 0.4 % (0.0-3.0); EOS # 0.1 (0.0-0.7); EOS % 1.5 % (1.5-5.0); HEMOGLOBIN 12.2 g/dL (12.0-16.0); LYMPH # 2.1 (1.2-3.4); MEAN CELL VOLUME 80.1 fl (80.0-105.0); MEAN CORPUSCULAR HEMOGLOBIN 26.7 pg (25.0-35.0); MEAN CORPUSCULAR HGB CONC 33.3 g/dl (31.0-37.0); MEAN PLATELET VOLUME 11.3 fl (7.0-11.0); MONO # 0.4 (0.1-0.6); MONO % 5.1 % (1.0-6.0); RBC 4.57 10^6/uL (3.5-6.1); RED CELL DISTRIBUTION WIDTH 14.3 % (11.5-14.5); WHITE BLOOD COUNT 6.9 10^3/uL (4.5-11.0)
[2018-09-25 22:19] LABS: URINE APPEARANCE CLEAR (CLEAR); URINE BILIRUBIN NEGATIVE (NEGATIVE); URINE BLOOD SMALL (NEGATIVE); URINE COLOR LIGHT YELLOW (YELLOW); URINE GLUCOSE (UA) NEGATIVE (NEGATIVE); URINE LEUKOCYTE ESTERASE TRACE Leu/uL (NEGATIVE); URINE PROTEIN NEGATIVE mg/dL (<30 mg/dL); URINE UROBILINOGEN 0.2 E.U./dL (<1 E.U./dL)
[2018-09-25 22:28] LABS: URINE RBC 0 - 2 /hpf (0-2); URINE WBC 0 - 2 /hpf (0-6)
[2018-09-25 22:29] LABS: ALB/GLOB RATIO 1.1 (1.1-1.8); ALBUMIN 4.3 g/dL (3.0-4.8); ALT/SGPT 10 U/L (7-56); AST/SGOT 27 U/L (14-36); BLOOD UREA NITROGEN 19 mg/dL (7-21); CALCIUM 9.7 mg/dL (8.4-10.5); GFR NON-AFRICAN AMERICAN > 60
[2018-09-25 22:32] LABS: INR 1.11; PARTIAL THROMBOPLASTIN TIME 34.5 Seconds (26.9-38.3); PROTHROMBIN TIME 12.3 SECONDS (9.4-12.5)
[2018-09-25 22:49] VITALS: BP 117/69; PULSE 72; TEMP 98; O2SAT 100
== END 2018-09-25 22:47 | disposition home or self-care (01) ==
LOC: ED 21:06
DX: N39.0 Urinary tract infection, site not specified (principal); K64.9 Unspecified hemorrhoids; K62.5 Hemorrhage of anus and rectum